=== PATIENT | female | born 2000 | race Caucasian/White ===

== ENCOUNTER → 2018-01-03 11:30 | Outpatient (CLI) | payer BC, SELFPAY ==
--- NOTE | 2018-01-03 11:30 | DT_ITS ---
This patient was seen during an EMR downtime December 31, 2017 - January 07, 2018. This patient may have a combination of paper and electronic documentation or all paper documentation. All documentation is viewable within the e-chart portion of [facility] for each patient visit.
== END ==
PROVIDERS: Family Provider Pediatrics; PCP Pediatrics; Visit Provider Physician Assistant
DX: J02.9 Acute pharyngitis, unspecified (principal)
CPT/HCPCS: 87081